=== PATIENT | female | born 1980 | race Caucasian/White ===

== ENCOUNTER → 2021-07-12 | Outpatient (CLI) | payer OTHER | LOC: KOH-I 15:15 | DX: K43.9 Ventral hernia without obstruction or gangrene (principal) | CPT/HCPCS: 74176 ==

== ENCOUNTER → 2022-01-24 | Outpatient (CLI) | payer OTHER | LOC: CT 10:00 | DX: R10.2 Pelvic and perineal pain (principal); N32.89 Other specified disorders of bladder | CPT/HCPCS: Q9967 ==